=== PATIENT | male | born 1975 | race Hispanic/Latino ===

== ENCOUNTER 2019-04-06 | Emergency (ER) | payer OTHER ==
[2019-04-06] MEDS ORDERED: BACTROBAN TOP (19:52)
== END 2019-04-06 20:00 | disposition home or self-care (01) | DRG 605 ==
DX: S60.011A Contusion of right thumb without damage to nail, initial encounter (principal); S40.012A Contusion of left shoulder, initial encounter; S50.812A Abrasion of left forearm, initial encounter; S50.811A Abrasion of right forearm, initial encounter; V43.52XA Car driver injured in collision with other type car in traffic accident, initial encounter; W22.11XA Striking against or struck by driver side automobile airbag, initial encounter